=== PATIENT | female | born 1960 | race American Indian/Alaskan Native ===

== ENCOUNTER 2019-12-26 13:45 | Observation (INO) | payer OTHER, MEDICARE ==
--- NOTE | 2019-12-26 14:34 | Emergency Department Report ---
Blank Doc - Documentation Documentation: 59-year-old female that presents with dizziness with headache. Stated has some blurry vision. HTN in traiage noted. This initial assessment/diagnostic orders/clinical plan/treatment(s) is/are subject to change based on patient's health status, clinical progression and re-assessment by fellow clinical providers in the ED. Further treatment and workup at subsequent clinical providers discretion. Patient/guardians urged not to elope from the ED as their condition may be serious if not clinically assessed and managed. Initial orders include: 1- Patient sent to [facility] for further evaluation and treatment 2- CT head 3- labs
--- NOTE | 2019-12-26 15:07 | Cat Scan Report ---
CT HEAD WITHOUT CONTRAST INDICATION / CLINICAL INFORMATION: Stroke. TECHNIQUE: Axial imaging performed from the skull apex through the skull base without the use of cont rast. Sagittal and coronal reformatted images. All CT scans at this location are performed using CT dose reduction for ALARA by means of automated exposure control. COMPARISON: None available. FINDINGS: CEREBRAL PARENCHYMA: No significant abnormality. No acute territorial infarct. HEMORRHAGE: None. EXTRA-AXIAL SPACES: Normal in size and morphology for the patient's age. VENTRICULAR SYSTEM: Normal in size and morphology for the patient's age. MIDLINE SHIFT OR HERNIATION: None. CEREBELLUM / BRAINSTEM: No significant abnormality. CALVARIUM: No significant abnormality. ORBITS: Normal as visualized. PARANASAL SINUSES / MASTOID AIR CELLS: Normal as visualized. SOFT TISSUES of HEAD: No significant abnormality. ADDITIONAL FINDINGS: None. IMPRESSION: No acute intracranial abnormality. These findings were discussed with Dr. Mock in the emergency department at 1501 Eastern standard time . Signer Name: Jeremy Rollins Jr, MD Signed: 12/26/2019 3:03 PM Workstation Name: [id number]
--- NOTE | 2019-12-26 15:23 | Consultation ---
History of Present Illness Consult date: 12/26/19 History of present illness: [facility] Date of Service: 12/26/2019 14:46:18 Impression: Rule Out Acute Ischemic Stroke v Left Castelan's Palsy Comments/Sign-Out: Consider treatment for Castelan's palsy or stroke workup if appropriate Mechanism of Stroke: Not Clear Metrics: Last Known Well: 12/26/2019 08:00:00 [employer] Notification Time: 12/26/2019 14:45:39 Arrival Time: 12/26/2019 14:46:00 Stamp Time: 12/26/2019 14:46:18 Time First Login Attempt: 12/26/2019 14:51:08 Video Start Time: 12/26/2019 14:51:08 Symptoms: dizziness, facial weakness NIHSS Start Assessment Time: 12/26/2019 15:20:38 Patient is not a candidate for Alteplase/Activase. Patient was not deemed candidate for Alteplase/Activase thrombolytics because of Resolved symptoms (no residual disabling symptoms). Video End Time: 12/26/2019 15:20:35 CT head showed no acute hemorrhage or acute core infarct. Clinical Presentation is not Suggestive of Large Vessel Occlusive Disease ED Physician notified of diagnostic impression and management plan on 12/26/2019 15:20:36 Sign Out: Discussed with Emergency Department Provider History of Present Illness: Patient is a 59 year old Female. Patient was brought by private transportation with symptoms of dizziness, facial weakness 59 yo F h/o HTN, p/w earache for a few days and L sided headache. Today pt noted L facial weakness and sensation of abnormal equilibrium today, along w blurry vision for a few seconds. No previous similar symptoms. Past Medical History: Hypertension Anticoagulant use: No Antiplatelet use: No Examination: BP(159/81), Blood Glucose(123) 1A: Level of Consciousness - Alert; keenly responsive + 0 1B: Ask Month and Age - Both Questions Right + 0 1C: Blink Eyes & Squeeze Hands - Performs Both Tasks + 0 2: Test Horizontal Extraocular Movements - Normal + 0 3: Test Visual Sage - No Visual Loss + 0 4: Test Facial Palsy (Use Grimace if Obtunded) - Minor paralysis (flat nasolabial fold, smile asymmetry) + 1 5A: Test Left Arm Motor Drift - No Drift for 10 Seconds + 0 5B: Test Right Arm Motor Drift - No Drift for 10 Seconds + 0 6A: Test Left Leg Motor Drift - No Drift for 5 Seconds + 0 6B: Test Right Leg Motor Drift - No Drift for 5 Seconds + 0 7: Test Limb Ataxia (FNF/Heel-Ku) - No Ataxia + 0 8: Test Sensation - Normal; No sensory loss + 0 9: Test Language/Aphasia - Normal; No aphasia + 0 10: Test Dysarthria - Normal + 0 11: Test Extinction/Inattention - No abnormality + 0 NIHSS Score: 1 Patient/Family was informed the Neurology Consult would happen via TeleHealth consult by way of interactive audio and video telecommunications and consented to receiving care in this manner. Due to the immediate potential for life-threatening deterioration due to underlying acute neurologic illness, I spent 35 minutes providing critical care. This time includes time for face to face visit via telemedicine, review of medical records, imaging studies and discussion of findings with providers, the patient and/or family. Dr Sylvia Malone [facility] Case [id number] Medications and Allergies Allergies Allergy/AdvReac Type Severity Reaction Status Date / Time No Known Allergies Allergy Unverified 06/25/14 08:41 Physical Examination - Vital Signs Vital Signs: Vital Signs Temp Pulse Resp BP Pulse Ox 98.1 F 78 18 162/93 98 12/26/19 14:34 12/26/19 14:34 12/26/19 14:34 12/26/19 14:34 12/26/19 14:34 Results - Laboratory Findings Abnormal Lab Findings: Abnormal Labs 12/26/19 15:00 POC Glucose 123 H
[2019-12-26 15:25] LABS: Basophils % (Auto) 0.7 % (0.0-1.8); Eosinophils % (Auto) 0.8 % (0.0-4.3); Hematocrit 36.3 % (30.3-42.9); Hemoglobin 11.8 gm/dl (10.1-14.3); Lymphocytes # (Auto) 1.4 K/mm3 (1.2-5.4); Lymphocytes % (Auto) 33.7 % (13.4-35.0); Mean Corpuscular HGB Conc 33 % (30-34); Mean Corpuscular Volume 76 fl (79-97); Monocytes # (Auto) 0.5 K/mm3 (0.0-0.8); Monocytes % (Auto) 12.6 % (0.0-7.3); Platelet Count 229 K/mm3 (140-440); Red Blood Count 4.77 M/mm3 (3.65-5.03); Red Cell Distribution Width 16.5 % (13.2-15.2)
[2019-12-26] MEDS ORDERED: ASPIRIN 325 MG TAB PO ONE (15:25)
[2019-12-26] MEDS ORDERED: HYDROcodone/ACETAMINOPHEN 5-325 MG TAB PO ONE (15:25)
--- NOTE | 2019-12-26 15:28 | Emergency Department Report ---
HPI - General Chief Complaint: Dizziness Time Seen by Provider: 12/26/19 14:31 - HPI HPI: Room 7 Patient is a 59-year-old female present with a chief complaint of headache. The patient states she has had a headache and left earache for the past 5 days. The patient states today at approximate 11: 00 she noticed that her smile was asymmetric and that her face "head shifted." The patient states her vision in both eyes went "black" for several seconds so she came to the emergency department. Patient denies extremity weakness, chest pain shortness of breath or fever. ED Past Medical Hx - Past Medical History Previous Medical History?: Yes Hx Hypertension: Yes - Surgical History Past Surgical History?: No - Family History Family history: no significant - Social History Smoking Status: Former Smoker (None x10 years) Substance Use Type: None (Denies illicit drug use) ED Review of Systems ROS: Stated complaint: HEADACHE Other details as noted in HPI Constitutional: no symptoms reported Eyes: vision change ENT: ear pain Respiratory: no symptoms reported Cardiovascular: denies: chest pain Endocrine: no symptoms reported Neurological: headache, weakness (Facial weakness) Physical Exam - Physical Exam Vital Signs: Vital Signs 12/26/19 12/26/19 14:34 15:08 Temperature 98.1 F Pulse Rate 78 Respiratory 18 17 Rate Blood Pressure 162/93 O2 Sat by Pulse 98 99 Oximetry Physical Exam: GENERAL: The patient is well-developed well-nourished female lying on stretcher not appearing to be in acute distress. [] HEENT: Normocephalic. Atraumatic. Extraocular motions are intact. Patient has moist mucous membranes. Auditory canals appear slightly swollen bilaterally. The visualized portion of TM very limited but appears clear NECK: Supple. Trachea midline CHEST/LUNGS: Clear to auscultation. There is no respiratory distress noted. HEART/CARDIOVASCULAR: Regular. There is no tachycardia. There is no gallop rub or murmur. ABDOMEN: Abdomen is soft, nontender. Patient has normal bowel sounds. There is no abdominal distention. SKIN: There is no rash. There is no edema. There is no diaphoresis. NEURO: The patient is awake, alert, and oriented. The patient is cooperative. There is a left facial droop with forehead sparing otherwise cranial nerves II through XII grossly intact. No weakness in the extremities appreciated. The patient has normal speech MUSCULOSKELETAL: There is no evidence of acute injury. ED Course Vital Signs 12/26/19 12/26/19 14:34 15:08 Temperature 98.1 F Pulse Rate 78 Respiratory 18 17 Rate Blood Pressure 162/93 O2 Sat by Pulse 98 99 Oximetry ED Medical Decision Making - Lab Data Result diagrams: 12/26/19 14:59 12/26/19 14:59 Laboratory Tests 12/26/19 12/26/19 12/26/19 14:59 14:59 14:59 WBC 4.2 L RBC 4.77 Hgb 11.8 Hct 36.3 MCV 76 L MCH 25 L MCHC 33 RDW 16.5 H Plt Count 229 Lymph % (Auto) 33.7 [place] % (Auto) 12.6 H Eos % (Auto) 0.8 Baso % (Auto) 0.7 Lymph # 1.4 [place] # 0.5 Eos # 0.0 Baso # 0.0 Seg Neutrophils % 52.2 Seg Neutrophils # 2.2 PT 12.2 INR 0.90 APTT 25.7 Thrombin Time 16.1 Sodium 142 Potassium 3.5 L Chloride 105.2 Carbon Dioxide 25 Anion Gap 15 BUN 11 Creatinine 0.8 Estimated GFR > 60 BUN/Creatinine Ratio 14 Glucose 123 H POC Glucose Calcium 9.6 Total Bilirubin 0.30 AST 20 ALT 13 Alkaline Phosphatase 89 Total Creatine Kinase 229 H CK-MB (CK-2) 1.9 CK-MB (CK-2) Rel Index 0.8 Troponin T < 0.010 Total Protein 7.4 Albumin 4.4 Albumin/Globulin Ratio 1.5 Plasma/Serum Alcohol 12/26/19 12/26/19 14:59 15:00 WBC RBC Hgb Hct MCV MCH MCHC RDW Plt Count Lymph % (Auto) [place] % (Auto) Eos % (Auto) Baso % (Auto) Lymph # [place] # Eos # Baso # Seg Neutrophils % Seg Neutrophils # PT INR APTT Thrombin Time Sodium Potassium Chloride Carbon Dioxide Anion Gap BUN Creatinine Estimated GFR BUN/Creatinine Ratio Glucose POC Glucose 123 H Calcium Total Bilirubin AST ALT Alkaline Phosphatase Total Creatine Kinase CK-MB (CK-2) CK-MB (CK-2) Rel Index Troponin T Total Protein Albumin Albumin/Globulin Ratio Plasma/Serum Alcohol < 0.01 - EKG Data -: EKG Interpreted by Sc EKG shows normal: sinus rhythm Rate: bradycardia (59 bpm) - EKG Data When compared to previous EKG there are: previous EKG unavailable Interpretation: nonspecific ST-T wave cb - Radiology Data Radiology results: report reviewed (CT head), image reviewed (CT head) [facility] [address] [place] [address] Cat Scan Report Signed Patient: JOANIE CASTELAN MR#: [id number] : 1960 Acct:[id number] Age/Sex: 59 / F ADM Date: 12/26/19 Loc: ED Attending Dr: Ordering Physician: MORALES CAPELLAN NP Date of Service: 12/26/19 Procedure(s): CT head/brain wo con Accession Number(s): [id number] cc: MORALES CAPELLAN NP CT HEAD WITHOUT CONTRAST INDICATION / CLINICAL INFORMATION: Stroke. TECHNIQUE: Axial imaging performed from the skull apex through the skull base without the use of contrast. Sagittal and coronal reformatted images. All CT scans at this location are performed using CT dose reduction for ALARA by means of automated exposure control. COMPARISON: None available. FINDINGS: CEREBRAL PARENCHYMA: No significant abnormality. No acute territorial infarct. HEMORRHAGE: None. EXTRA-AXIAL SPACES: Normal in size and morphology for the patient's age. VENTRICULAR SYSTEM: Normal in size and morphology for the patient's age. MIDLINE SHIFT OR HERNIATION: None. CEREBELLUM / BRAINSTEM: No significant abnormality. CALVARIUM: No significant abnormality. ORBITS: Normal as visualized. PARANASAL SINUSES / MASTOID AIR CELLS: Normal as visualized. SOFT TISSUES of HEAD: No significant abnormality. ADDITIONAL FINDINGS: None. IMPRESSION: No acute intracranial abnormality. These findings were discussed with Dr. Mock in the emergency department at 1501 Eastern standard time. Signer Name: Jeremy Rollins Jr, MD Signed: 12/26/2019 3:03 PM Workstation Name: [id number] Transcribed By: TTR Dictated By: JEREMY ROLLINS JR, MD Electronically Authenticated By: JEREMY ROLLINS JR, MD Signed Date/Time: 12/26/19 1503 DD/ 1459 TD/TT: - Differential Diagnosis CVA, Castelan's Critical care attestation.: If time is entered above; I have spent that time in minutes in the direct care of this critically ill patient, excluding procedure time. ED Disposition Clinical Impression: CVA (cerebral vascular accident) Disposition: DC-09 OP ADMIT IP TO THIS HOSP Is pt being admited?: Yes Does the pt Need Aspirin: Yes Condition: Fair Time of Disposition: 17:29 (Hospitalist paged (Dr. Pat))
[2019-12-26 15:31] LABS: INR 0.9 (0.87-1.13)
[2019-12-26 15:32] LABS: Partial Thromboplastin Time 25.7 Sec. (24.2-36.6); Thrombin Time 16.1 Sec. (15.1-19.6)
[2019-12-26 15:50] LABS: Alanine Aminotransferase 13 units/L (7-56); Albumin 4.4 g/dL (3.9-5); BUN/Creatinine Ratio 14; Blood Urea Nitrogen 11 mg/dL (7-17); Calcium 9.6 mg/dL (8.4-10.2); Creatine Kinase MB 1.9 ng/mL (0.0-4.0); Hemolysis Index 0
[2019-12-26] MEDS ORDERED: PROMETHAZINE 25 MG RECT SUPP PR PRN (19:04)
[2019-12-26] MEDS ORDERED: ONDANSETRON 4 MG/2 ML INJ IV PRN (19:04)
[2019-12-26] MEDS ORDERED: METOCLOPRAMIDE 10 MG TAB PO PRN (19:04)
--- NOTE | 2019-12-26 19:04 | History and Physical Report ---
History of Present Illness Chief complaint: My face was twisted History of present illness: 59 YO Female with HTN, Obesity presents to ED for evaluation. Patient states that she has experienced a headache and left earache over the past 5 days. Patient states that approximately 100 hours a day she noticed that her smile was crooked, and that her face "head shifted". Patient also reports that her vision in both eyes "went black" for several seconds. Patient transported to [facility] via private vehicle for further care and evaluation of the aforementioned symptoms. Patient seen and evaluated in the emergency department. A code stroke was called. Tele-neurology was consulted in the emergency department prior to my evaluation. Patient found to have a neurologic deficit as well as symptoms consistent with acute CVA. Patient initiated on stroke protocol and placed in observation status and admitted to medical floor. Patient denies fever, chills, chest pain, palpitations, productive cough, skin rash, recent ill contacts, or known exposure to COVID-19. No medication listed at time of admission for reconciliation. No prior admission for review. Advanced care planning conducted in the emergency department. Past History Past Medical History: hypertension, other (See HPI) Past Surgical History: No surgical history, Other (Reviewed) Social history: single. denies: smoking, alcohol abuse, prescription drug abuse Family history: hypertension Medications and Allergies Allergies Allergy/AdvReac Type Severity Reaction Status Date / Time No Known Allergies Allergy Unverified 06/25/14 08:41 Review of Systems Constitutional: no weight loss, no weight gain, no fever, no chills Ears, nose, mouth and throat: no ear pain, no ear discharge, no tinnitis Breasts: no change in shape, no swelling, no mass Cardiovascular: no chest pain, no orthopnea, no rapid/irregular heart beat, no edema Respiratory: no cough, no cough with sputum, no hemoptysis, no shortness of breath Gastrointestinal: no abdominal pain, no nausea, no vomiting, no constipation, no change in bowel habits Genitourinary Female: no pelvic pain, no flank pain, no urinary frequency, no urgency Rectal: no pain, no bleeding Musculoskeletal: no neck stiffness, no shooting arm pain, no low back pain, no leg numbness/tingling Integumentary: no rash, no pruritis, no redness, no sores, no wounds Neurological: weakness, lack of coordination, headaches, change in speech, loss of vision, no seizures, no syncope Psychiatric: no anxiety, no memory loss, no sleep disturbances, no change in appetite, no suicidal ideation Endocrine: no cold intolerance, no heat intolerance, no excessive thirst, no polydipsia, no polyuria, no nocturia Hematologic/Lymphatic: no easy bruising, no easy bleeding, no lymphadenopathy Allergic/Immunologic: no allergic rhinitis, no anaphylaxis Exam - Constitutional Vitals: Temp Pulse Resp BP Pulse Ox 98.1 F 83 13 118/68 97 12/26/19 14:34 12/26/19 17:48 12/26/19 17:48 12/26/19 17:48 12/26/19 17:48 General appearance: Present: mild distress - EENT Eyes: Present: PERRL ENT: hearing intact, clear oral mucosa - Neck Neck: Present: supple, normal ROM - Respiratory Respiratory effort: normal Respiratory: bilateral: CTA - Cardiovascular Heart Sounds: Present: S1 & S2. Absent: rub, click - Extremities Extremities: pulses symmetrical, No edema Peripheral Pulses: within normal limits - Abdominal General gastrointestinal: Present: soft, non-tender, non-distended, normal bowel sounds Female genitourinary: Present: normal - Integumentary Integumentary: Present: clear, warm, dry - Musculoskeletal Musculoskeletal: gait normal, strength equal bilaterally - Psychiatric Psychiatric: appropriate mood/affect, intact judgment & insight - Neurologic Neurologic: CNII-XII intact, moves all extremities, no gait normal HEART Score - HEART Score Troponin: Troponin T < 0.010 ng/mL (0.00-0.029) 12/26/19 14:59 Results - Labs CBC & Chem 7: 12/26/19 14:59 12/26/19 14:59 Labs: Abnormal lab results 12/26/19 12/26/19 12/26/19 Range/Units 14:59 14:59 15:00 WBC 4.2 L (4.5-11.0) K/mm3 MCV 76 L (79-97) fl MCH 25 L (28-32) pg RDW 16.5 H (13.2-15.2) % [place] % (Auto) 12.6 H (0.0-7.3) % Potassium 3.5 L (3.6-5.0) mmol/L Glucose 123 H (65-100) mg/dL POC Glucose 123 H (70-105) Total Creatine Kinase 229 H (30-135) units/L Assessment and Plan - Patient Problems (1) CVA (cerebral vascular accident) Current Visit: Yes Status: Acute Plan to address problem: CVA protocol: Admit to medical floor. CT head, carotid Doppler, echocardiogram, neuro check, lipid panel, statin therapy, antiplatelet therapy, physical therapy consulted, Occupational Therapy consulted, speech therapy consulted, (2) Hypertension Current Visit: Yes Status: Acute Qualifiers: Hypertension type: essential hypertension Qualified Code(s): I10 - Essential (primary) hypertension Plan to address problem: Monitor blood pressure every shift, continue medical management. (3) Obesity hypoventilation syndrome Current Visit: Yes Status: Acute Plan to address problem: Supplemental oxygen, pulse oximetry, noninvasive positive pressure ventilation as clinically indicated. Balanced diet, increase physical activity at discharge. (4) DVT prophylaxis Current Visit: Yes Status: Acute Plan to address problem: SCD to bilateral lower extremities while in bed, patient is ambulatory. (5) Advance care planning Current Visit: Yes Status: Acute Plan to address problem: Disease education conducted, patient is full code, prognosis discussed, patient knowledges understanding and agreement with care plan, +30 minutes.
[2019-12-26 20:21] LABS: Chol/HDL Ratio 4.31 %
--- NOTE | 2019-12-27 10:21 | Consultation ---
History of Present Illness Consult date: 12/27/19 History of present illness: 59 YO Female with HTN, Obesity presents to ED for evaluation. Patient states that she has experienced a headache and left earache over the past 5 days. Patient states that approximately 100 hours a day she noticed that her smile was crooked, and that her face "head shifted". Patient also reports that her vision in both eyes "went black" for several seconds. Patient transported to [facility] via private vehicle for further care and evaluation of the aforementioned symptoms. Patient seen and evaluated in the emergency department. A code stroke was called. Tele-neurology was consulted in the emergency department prior to my evaluation. Patient found to have a neurologic deficit as well as symptoms consistent with acute CVA. Patient initiated on stroke protocol and placed in observation status and admitted to medical floor. Patient denies fever, chills, chest pain, palpitations, productive cough, skin rash, recent ill contacts, or known exposure to COVID-19. No medication listed at time of admission for reconciliation. No prior admission for review. Advanced care planning conducted in the emergency department. Past History Past Medical History: hypertension, other (See HPI) Past Surgical History: No surgical history, Other (Reviewed) Social history: single. denies: smoking, alcohol abuse, prescription drug abuse Family history: hypertension Medications and Allergies Allergies Allergy/AdvReac Type Severity Reaction Status Date / Time No Known Allergies Allergy Unverified 06/25/14 08:41 Review of Systems Constitutional: no weight loss, no weight gain, no fever, no chills Ears, nose, mouth and throat: no ear pain, no ear discharge, no tinnitis Breasts: no change in shape, no swelling, no mass Cardiovascular: no chest pain, no orthopnea, no rapid/irregular heart beat, no edema Respiratory: no cough, no cough with sputum, no hemoptysis, no shortness of breath Gastrointestinal: no abdominal pain, no nausea, no vomiting, no constipation, no change in bowel habits Genitourinary Female: no pelvic pain, no flank pain, no urinary frequency, no urgency Rectal: no pain, no bleeding Musculoskeletal: no neck stiffness, no shooting arm pain, no low back pain, no leg numbness/tingling Integumentary: no rash, no pruritis, no redness, no sores, no wounds Neurological: weakness, lack of coordination, headaches, change in speech, loss of vision, no seizures, no syncope Psychiatric: no anxiety, no memory loss, no sleep disturbances, no change in appetite, no suicidal ideation Endocrine: no cold intolerance, no heat intolerance, no excessive thirst, no polydipsia, no polyuria, no nocturia Hematologic/Lymphatic: no easy bruising, no easy bleeding, no lymphadenopathy Allergic/Immunologic: no allergic rhinitis, no anaphylaxis Past History Past Medical History: hypertension, other (See HPI) Past Surgical History: No surgical history, Other (Reviewed) Social history: single. denies: smoking, alcohol abuse, prescription drug abuse Family history: hypertension Medications and Allergies Allergies Allergy/AdvReac Type Severity Reaction Status Date / Time No Known Allergies Allergy Unverified 06/25/14 08:41 Home Medications Medication Instructions Recorded Confirmed Last Taken Type amLODIPine 5 mg PO DAILY 12/26/19 12/26/19 Unknown History Lispro Insulin 6 units SQ BID 12/27/19 12/27/19 Unknown History Amoxicillin/K Clav Tab [Augmentin 1 each PO Q12HR #10 tablet 12/28/19 Unknown Rx 875MG TAB] Aspirin [Aspirin BABY CHEW TAB] 81 mg PO QDAY #30 tab.chew 12/28/19 Unknown Rx AtorvaSTATin [Lipitor] 40 mg PO QHS #30 tablet 12/28/19 Unknown Rx Ondansetron [Zofran Odt] 4 mg PO Q6H #30 tab.rapdis 12/28/19 Unknown Rx predniSONE [Deltasone] 40 mg PO QDAY #10 tablet 12/28/19 Unknown Rx Active Meds: Active Medications Acetaminophen (Tylenol) 650 mg PO Q4H PRN PRN Reason: Pain, Mild (1-3) Atorvastatin Calcium (Lipitor) 40 mg PO QHS SOPHIE Last Admin: 12/26/19 22:35 Dose: 40 mg Documented by: Bisacodyl (Dulcolax) 10 mg WV QDAY PRN PRN Reason: Constipation Magnesium Hydroxide (Milk Of Magnesia) 30 ml PO Q4H PRN PRN Reason: Constipation Metoclopramide HCl (Reglan) 10 mg PO Q6H PRN PRN Reason: Nausea And Vomiting Ondansetron HCl (Zofran) 4 mg IV Q8H PRN PRN Reason: Nausea And Vomiting Promethazine HCl (Phenergan) 25 mg WV Q6H PRN PRN Reason: Nausea And Vomiting Sodium Chloride (Sodium Chloride Flush Syringe 10 Ml) 10 ml IV PRN PRN PRN Reason: LINE FLUSH Physical Examination - Vital Signs Vital Signs: Vital Signs Temp Pulse Resp BP Pulse Ox 98.1 F 78 18 162/93 98 12/26/19 14:34 12/26/19 14:34 12/26/19 14:34 12/26/19 14:34 12/26/19 14:34 - Constitutional General appearance: comfortable - EENT EENT: Present: PERRL, vision intact - Respiratory Respiratory: Present: chest non-tender - Cardiovascular Cardiovascular: Present: regular rate - Gastrointestinal Gastrointestinal: Present: normoactive bowel sounds - Integumentary Integumentary: Present: normal - Neurologic Cranial nerve examination: anosmic, other (left facial droop upper and lower , with slight difficulty close left eye , ) Speech examination: intact Sensorimotor examination: intact Detailed motor examination: grossly full strength in Results - Laboratory Findings CBC and BMP: 12/26/19 14:59 12/26/19 14:59 Abnormal Lab Findings: Abnormal Labs 12/26/19 12/26/19 12/26/19 14:59 14:59 15:00 WBC 4.2 L MCV 76 L MCH 25 L RDW 16.5 H [place] % (Auto) 12.6 H Potassium 3.5 L Glucose 123 H POC Glucose 123 H Total Creatine Kinase 229 H Cholesterol LDL Cholesterol Direct 12/26/19 19:16 WBC MCV MCH RDW [place] % (Auto) Potassium Glucose POC Glucose Total Creatine Kinase Cholesterol 203 H LDL Cholesterol Direct 139 H Assessment and Plan Assessment and Plan - Patient Problems (1) left bells palsy -Ct brain is normal - carotid Doppler unremarkabl - echocardiogram, EF# 55-60% - lipid panel LDL#139 on statin [id number] mg - antiplatelet therapy - physical therapy consulted, Occupational Therapy -started on steroid Follow up with ENT if no better in a month (2) Hypertension -Monitor blood pressure (3) Obesity hypoventilation syndrome - Consider sleep study as out pt -try to loss weight (4) DVT prophylaxis -SCD to bilateral lower extremities while in bed, patient is ambulatory.
--- NOTE | 2019-12-27 12:17 | Vascular Lab Report ---
BILATERAL CAROTID DOPPLER ULTRASOUND INDICATION : stroke TECHNIQUE: Grayscale and color Doppler imaging performed through the neck. COMPARISON: None FINDINGS: Right: There is no significant atherosclerotic disease. Peak systolic velocity in the CCA is 80 cm/ s with end-diastolic velocity of 26 cm/s. Peak systolic velocity in the proximal ICA is 79 cm/s with end-diastolic velocity of 99 cm/s. ICA to CCA ratio is less than 2. There is antegrade flow in the E CA and the vertebral artery. Left: There is no significant atherosclerotic disease. Peak systolic velocity in the CCA is 94 cm/s w ith end-diastolic velocity of 27 cm/s. Peak systolic velocity in the proximal ICA is 95 cm/s with end -diastolic velocity of 25 cm/s. ICA to CCA ratio is less than 2. There is antegrade flow in the ECA and the vertebral artery. IMPRESSION: No hemodynamically significant stenosis by NASCET criteria. Doppler velocities indicate l ess than 50% luminal narrowing bilaterally. Signer Name: Jeremy Rollins Jr, MD Signed: 12/27/2019 12:13 PM Workstation Name: [id number]
[2019-12-27] MEDS: ACETAMINOPHEN 325 MG TAB PO PRN ×2 (12:43→18:36)
--- NOTE | 2019-12-27 16:53 | Progress Note ---
Assessment and Plan Assessment and plan: 59 YO Female with HTN, Obesity presents to ED for evaluation. Patient states that she has experienced a headache and left earache over the past 5 days. Patient states that approximately 100 hours a day she noticed that her smile was crooked, and that her face "head shifted". Patient also reports that her vision in both eyes "went black" for several seconds. Patient transported to [facility] via private vehicle for further care and evaluation of the aforementioned symptoms. Patient seen and evaluated in the emergency department. A code stroke was called. Tele-neurology was consulted in the emergency department prior to my evaluation. Patient found to have a neurologic deficit as well as symptoms consistent with acute CVA. Patient initiated on stroke protocol and placed in observation status and admitted to medical floor. Patient denies fever, chills, chest pain, palpitations, productive cough, skin rash, recent ill contacts, or known exposure to COVID-19. No medication listed at time of admission for reconciliation. No prior admission for review. Advanced care planning conducted in the emergency department. 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 Patient with chronic headaches will continue Tylenol at this time. Monitor blood pressure. Weight loss counseling provided to the patient. (2) Hypertension Current Visit: Yes Status: Acute Qualifiers: Hypertension type: essential hypertension Qualified Code(s): I10 - Essential (primary) hypertension Plan to address problem: Monitor blood pressure every shift, continue medical management. (3) Obesity hypoventilation syndrome Current Visit: Yes Status: Acute Plan to address problem: Supplemental oxygen, pulse oximetry, noninvasive positive pressure ventilation as clinically indicated. Balanced diet, increase physical activity at discharge. (4) DVT prophylaxis Current Visit: Yes Status: Acute Plan to address problem: SCD to bilateral lower extremities while in bed, patient is ambulatory. (5) Advance care planning Current Visit: Yes Status: Acute Plan to address problem: Disease education conducted, patient is full code, prognosis discussed, patient knowledges understanding and agreement with care plan, +30 minutes. History Interval history: Examined reports headache no other complaints. Left facial droop still in place. Hospitalist Physical - Physical exam Narrative exam: VITAL SIGNS: Reviewed. GENERAL: The patient appears normally developed, Vital signs as documented. HEAD: No signs of head trauma. EYES: Pupils are equal. Extraocular motions intact. EARS: Hearing grossly intact. MOUTH: Oropharynx is normal. NECK: No adenopathy, no JVD. CHEST: Chest with clear breath sounds bilaterally. No wheezes, rales, or rhonchi. CARDIAC: Regular rate and rhythm. S1 and S2, without murmurs, gallops, or rubs. VASCULAR: No Edema. Peripheral pulses normal and equal in all extremities. ABDOMEN: Soft, non tender and non distended. No rebound or guarding, and no masses palpated. Bowel Sounds normal. MUSCULOSKELETAL: Good range of motion of all major joints. Extremities without clubbing, cyanosis or edema. NEUROLOGIC EXAM: Alert and oriented x 3 except for noted left facial droop no other no focal sensory or strength deficits. Speech normal. Follows commands. PSYCHIATRIC: Mood normal. SKIN: detail exam as documented in skin assessment - Constitutional Vitals: Temp Pulse Resp BP Pulse Ox 98.4 F 91 H 18 131/86 99 12/27/19 03:51 12/27/19 03:51 12/27/19 03:51 12/27/19 03:51 12/27/19 03:51 General appearance: Present: mild distress HEART Score - HEART Score Troponin: Troponin T < 0.010 ng/mL (0.00-0.029) 12/26/19 14:59 Results - Labs CBC & Chem 7: 12/26/19 14:59 12/26/19 14:59 Labs: Laboratory Last Values WBC 4.2 K/mm3 (4.5-11.0) L 12/26/19 14:59 RBC 4.77 M/mm3 (3.65-5.03) 12/26/19 14:59 Hgb 11.8 gm/dl (10.1-14.3) 12/26/19 14:59 Hct 36.3 % (30.3-42.9) 12/26/19 14:59 MCV 76 fl (79-97) L 12/26/19 14:59 MCH 25 pg (28-32) L 12/26/19 14:59 MCHC 33 % (30-34) 12/26/19 14:59 RDW 16.5 % (13.2-15.2) H 12/26/19 14:59 Plt Count 229 K/mm3 (140-440) 12/26/19 14:59 Lymph % (Auto) 33.7 % (13.4-35.0) 12/26/19 14:59 [place] % (Auto) 12.6 % (0.0-7.3) H 12/26/19 14:59 Eos % (Auto) 0.8 % (0.0-4.3) 12/26/19 14:59 Baso % (Auto) 0.7 % (0.0-1.8) 12/26/19 14:59 Lymph # 1.4 K/mm3 (1.2-5.4) 12/26/19 14:59 [place] # 0.5 K/mm3 (0.0-0.8) 12/26/19 14:59 Eos # 0.0 K/mm3 (0.0-0.4) 12/26/19 14:59 Baso # 0.0 K/mm3 (0.0-0.1) 12/26/19 14:59 Seg Neutrophils % 52.2 % (40.0-70.0) 12/26/19 14:59 Seg Neutrophils # 2.2 K/mm3 (1.8-7.7) 12/26/19 14:59 PT 12.2 Sec. (12.2-14.9) 12/26/19 14:59 INR 0.90 (0.87-1.13) 12/26/19 14:59 APTT 25.7 Sec. (24.2-36.6) 12/26/19 14:59 Thrombin Time 16.1 Sec. (15.1-19.6) 12/26/19 14:59 Sodium 142 mmol/L (137-145) 12/26/19 14:59 Potassium 3.5 mmol/L (3.6-5.0) L 12/26/19 14:59 Chloride 105.2 mmol/L (98-107) 12/26/19 14:59 Carbon Dioxide 25 mmol/L (22-30) 12/26/19 14:59 Anion Gap 15 mmol/L 12/26/19 14:59 BUN 11 mg/dL (7-17) 12/26/19 14:59 Creatinine 0.8 mg/dL (0.6-1.2) 12/26/19 14:59 Estimated GFR > 60 ml/min 12/26/19 14:59 BUN/Creatinine Ratio 14 % 12/26/19 14:59 Glucose 123 mg/dL (65-100) H 12/26/19 14:59 POC Glucose 89 (70-105) 12/27/19 08:39 Calcium 9.6 mg/dL (8.4-10.2) 12/26/19 14:59 Total Bilirubin 0.30 mg/dL (0.1-1.2) 12/26/19 14:59 AST 20 units/L (5-40) 12/26/19 14:59 ALT 13 units/L (7-56) 12/26/19 14:59 Alkaline Phosphatase 89 units/L (35-129) 12/26/19 14:59 Total Creatine Kinase 229 units/L (30-135) H 12/26/19 14:59 CK-MB (CK-2) 1.9 ng/mL (0.0-4.0) 12/26/19 14:59 CK-MB (CK-2) Rel Index 0.8 (0-4) 12/26/19 14:59 Troponin T < 0.010 ng/mL (0.00-0.029) 12/26/19 14:59 Total Protein 7.4 g/dL (6.3-8.2) 12/26/19 14:59 Albumin 4.4 g/dL (3.9-5) 12/26/19 14:59 Albumin/Globulin Ratio 1.5 % 12/26/19 14:59 Triglycerides 137 mg/dL (2-149) 12/26/19 19:16 Cholesterol 203 mg/dL (50-199) H 12/26/19 19:16 LDL Cholesterol Direct 139 mg/dL (50-130) H 12/26/19 19:16 HDL Cholesterol 47 mg/dL (40-59) 12/26/19 19:16 Cholesterol/HDL Ratio 4.31 % 12/26/19 19:16 Plasma/Serum Alcohol < 0.01 % (0-0.07) 12/26/19 14:59 - Diagnostic Impressions Diagnostic Impressions: Echocardiogram 12/26/19 19:05 Transthoracic Echocardiogram Indication: Stroke BP: 131/86 HR: 68 Conclusions *The left ventricular chamber size is normal. *Global left ventricular wall motion and contractility are within normal limits. *Global left ventricular systolic function is normal. *The estimated ejection fraction is 55-60%. *Abnormal left ventricular diastolic filling is observed, consistent with impaired relaxation. *A patent foramen ovale is demonstrated by agitated saline contrast. Very small shunt noted on saline injection. *The right ventricular systolic pressure is calculated at 28 mmHg. Findings Left Ventricle: The left ventricular chamber size is normal. Global left ventricular wall motion and contractility are within normal limits. Global left ventricular systolic function is normal. The estimated ejection fraction is 55-60%. Abnormal left ventricular diastolic filling is observed, consistent with impaired relaxation. Right Ventricle: The right ventricular cavity size is normal. Right Atrium: The right atrial cavity size is normal. A patent foramen ovale is demonstrated by agitated saline contrast. Very small shunt noted on saline injection. Aortic Valve: The aortic valve structure is normal. There is no evidence of aortic regurgitation. Mitral Valve: The mitral valve leaflets are mildly thickened. There is trace of mitral regurgitation. Tricuspid Valve: The tricuspid valve leaflets are normal. There is mild tricuspid regurgitation. The right ventricular systolic pressure is calculated at 28 mmHg. Pulmonic Valve: The pulmonic valve appears normal. There is trace pulmonic regurgitation. Pericardium: There is no pericardial effusion. Aorta: The aorta appears normal. Contrast: Intravenous agitated saline contrast was used to assess intracardiac shunting. Measurements Chambers 2D Name Value Normal Range IVSd (2D) 0.99 cm (0.6 - 1.1) LVPWd (2D) 0.9 cm (0.6 - 1.1) LVIDd (2D) 4.38 cm (3.7 - 5.6) LVIDs (2D) 2.79 cm (2 - 3.8) LV FS (2D) 36.23 % - EF Teichholz (2D) 66.14 % - Ao root diameter (2D) 2.74 cm (2 - 3.7) Volumes/Mass Name Value Normal Range LA ESV SP 4CH (A/L) 29.52 ml - LA ESV SP 2CH (A/L) 44.45 ml - LA ESV BP (A/L) 36.82 ml - LA ESV BP (A/L) index 18.23 ml/m2 - LA ESV SP 4CH (MOD) 27.44 ml - LA ESV SP 2CH (MOD) 43.69 ml - LA ESV BP (MOD) 34.97 ml - LA ESV BP (MOD) index 17.31 ml/m2 - Diastolic/Systolic Function Name Value Normal Range MV E-wave Vmax 0.73 m/sec - MV deceleration time 207.62 msec - MV A-wave Vmax 0.82 m/sec - MV E:A ratio 0.89 ratio - Aortic Valve Name Value Normal Range AV Vmax 1.38 m/sec - AV VTI 30.56 cm - AV peak gradient 7.58 mmHg - AV mean gradient 4.3 mmHg - LVOT diameter 2.02 cm - LVOT Vmax 1.08 m/sec - LVOT VTI 26.08 cm - LVOT peak gradient 4.68 mmHg - LVOT mean gradient 2.73 mmHg - SV LVOT 83.51 ml - CAMILO (continuity Vmax) 2.52 cm2 - CAMILO (continuity VTI) 2.73 cm2 - Tricuspid Valve Name Value Normal Range TR Vmax 2.53 m/sec - TR peak gradient 25 mmHg - RAP 3 mmHg - RVSP 28 mmHg - Pulmonic Valve/Qp:Qs Name Value Normal Range PV Vmax 0.86 m/sec - PV peak gradient 2.96 mmHg - NM end-diastolic Vmax 0.92 m/sec - PV acceleration time 171.27 msec - Knapp/IV: Voiding Method Toilet IV Catheter Type [Right INT / Saline Lock Antecubital] Active Medications - Current Medications Current Medications: Generic Name Dose Route Start Last Admin Trade Name Freq PRN Reason Stop Dose Admin Acetaminophen 650 mg 12/26/19 19:04 12/27/19 12:43 Tylenol PO 650 mg Q4H PRN Administration Pain, Mild (1-3) Atorvastatin Calcium 40 mg 12/26/19 22:00 12/26/19 22:35 Lipitor PO 40 mg QHS SOPHIE Administration Bisacodyl 10 mg 12/26/19 19:04 Dulcolax NM QDAY PRN Constipation Magnesium Hydroxide 30 ml 12/26/19 19:04 Milk Of Magnesia PO Q4H PRN Constipation Metoclopramide HCl 10 mg 12/26/19 19:04 Reglan PO Q6H PRN Nausea And Vomiting Ondansetron HCl 4 mg 12/26/19 19:04 Zofran IV Q8H PRN Nausea And Vomiting Promethazine HCl 25 mg 12/26/19 19:04 Phenergan NM Q6H PRN Nausea And Vomiting Sodium Chloride 10 ml 12/26/19 19:04 Sodium Chloride Flush Syringe 10 Ml IV PRN PRN LINE FLUSH
[2019-12-27] MEDS: MAGNESIUM HYDROXIDE (MOM) ORAL LIQD UDC PO PRN (21:53)
[2019-12-28] MEDS: amLODIPine 5 MG TAB PO SCH (09:49)
[2019-12-28] MEDS: predniSONE 20 MG TAB PO SCH (09:50)
[2019-12-28] MEDS: AMOXICILLIN/K CLAV 875/125MG TAB PO SCH ×2 (09:50→21:24)
[2019-12-28] MEDS: INSULIN LISPRO 100 UNIT/ML VIAL 3 mL SUB-Q SCH ×2 (09:51→17:26)
--- NOTE | 2019-12-28 11:48 | Discharge Summary ---
Providers - Providers Date of Admission: 12/26/19 19:04 Attending physician: SHEBA DAVIS MD 12/26/19 19:04 Occupational Therapy Evaluate and Treat [CONS] Routine Comment: Reason For Exam: Neuro deficits Physical Therapy Evaluation and Treat [CONS] Routine Comment: Reason For Exam: Neuro deficits 12/26/19 19:05 Speech Therapy Evaluation and Treat [CONS] Routine Reason For Exam: swallow eval 12/27/19 09:43 Consult to Physician [CONS] Routine Comment: Consulting Provider: CAROLINE MCINTOSH Physician Instructions: Reason For Exam: cva Primary care physician: DAI MEYER Hospitalization Reason for admission: facial drop Condition: Stable Hospital course: 59 YO Female with HTN, Obesity presents to ED for evaluation. Patient states that she has experienced a headache and left earache over the past 5 days. Patient states that approximately 100 hours a day she noticed that her smile was crooked, and that her face "head shifted". Patient also reports that her vision in both eyes "went black" for several seconds. Patient transported to [facility] via private vehicle for further care and evaluation of the aforementioned symptoms. Patient seen and evaluated in the emergency department. A code stroke was called. Tele-neurology was consulted in the emergency department prior to my evaluation. Patient found to have a neurologic deficit as well as symptoms consistent with acute CVA. Patient initiated on stroke protocol and placed in observation status and admitted to medical floor. Patient denies fever, chills, chest pain, palpitations, productive cough, skin rash, recent ill contacts, or known exposure to COVID-19. No medication listed at time of admission for reconciliation. No prior admission for review. Advanced care planning conducted in the emergency department. 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 Patient with chronic headaches will continue Tylenol at this time. Monitor blood pressure. Weight loss counseling provided to the patient. (2) Hypertension Current Visit: Yes Status: Acute Qualifiers: Hypertension type: essential hypertension Qualified Code(s): I10 - Essential (primary) hypertension Plan to address problem: Monitor blood pressure every shift, continue medical management. (3) Obesity hypoventilation syndrome Current Visit: Yes Status: Acute Plan to address problem: Supplemental oxygen, pulse oximetry, noninvasive positive pressure ventilation as clinically indicated. Balanced diet, increase physical activity at discharge. (4) DVT prophylaxis Current Visit: Yes Status: Acute Plan to address problem: SCD to bilateral lower extremities while in bed, patient is ambulatory. (5) Advance care planning Current Visit: Yes Status: Acute Plan to address problem: Disease education conducted, patient is full code, prognosis discussed, patient knowledges understanding and agreement with care plan, +30 minutes. Disposition: DC-01 TO HOME OR SELFCARE Time spent for discharge: 35 mins Core Measure Documentation - Palliative Care Palliative Care/ Comfort Measures: Not Applicable - Core Measures Any of the following diagnoses?: none Exam - Physical Exam Narrative exam: VITAL SIGNS: Reviewed. GENERAL: The patient appears normally developed, Vital signs as documented. HEAD: No signs of head trauma. EYES: Pupils are equal. Extraocular motions intact. EARS: Hearing grossly intact. MOUTH: Oropharynx is normal. NECK: No adenopathy, no JVD. CHEST: Chest with clear breath sounds bilaterally. No wheezes, rales, or rhonchi. CARDIAC: Regular rate and rhythm. S1 and S2, without murmurs, gallops, or rubs. VASCULAR: No Edema. Peripheral pulses normal and equal in all extremities. ABDOMEN: Soft, non tender and non distended. No rebound or guarding, and no masses palpated. Bowel Sounds normal. MUSCULOSKELETAL: Good range of motion of all major joints. Extremities without clubbing, cyanosis or edema. NEUROLOGIC EXAM: Alert and oriented x 3 except for noted left facial droop no other no focal sensory or strength deficits. Speech normal. Follows commands. PSYCHIATRIC: Mood normal. SKIN: detail exam as documented in skin assessment - Constitutional Vitals: Temp Pulse Resp BP Pulse Ox 98.6 F 91 H 20 148/93 99 12/28/19 07:42 12/28/19 09:49 12/28/19 07:42 12/28/19 09:49 12/28/19 07:42 Plan Activity: advance as tolerated, fall precautions Diet: low fat Special Instructions: record daily weights, record daily BP diary Additional Instructions: FOLLOW WITH NEUROLOGIST PER PCP RECOMMENDATION Follow up with: DAI MEYER MD [Primary Care Provider] - 3-5 Days Prescriptions: AtorvaSTATin [Lipitor] 40 mg PO QHS #30 tablet Aspirin [Aspirin BABY CHEW TAB] 81 mg PO QDAY #30 tab.[email or web address] Amoxicillin/K Clav Tab [Augmentin 875MG TAB] 1 each PO Q12HR #10 tablet predniSONE [Deltasone] 40 mg PO QDAY #10 tablet Ondansetron [Zofran Odt] 4 mg PO Q6H #30 tab.[email or web address]
[2019-12-28] MEDS: MAGNESIUM HYDROXIDE (MOM) ORAL LIQD UDC PO PRN (17:28)
--- NOTE | 2019-12-29 07:55 | Event Note ---
Date: 12/29/19
[2019-12-29 09:02] VITALS: BP 139/77
[2019-12-29] MEDS: INSULIN LISPRO 100 UNIT/ML VIAL 3 mL SUB-Q SCH (10:10)
[2019-12-29] MEDS: AMOXICILLIN/K CLAV 875/125MG TAB PO SCH (10:13)
[2019-12-29] MEDS: predniSONE 20 MG TAB PO SCH (10:13)
[2019-12-29] MEDS: amLODIPine 5 MG TAB PO SCH (10:13)
--- NOTE | 2019-12-29 12:04 | Progress Note ---
Assessment and Plan Assessment and plan: 59 YO Female with HTN, Obesity presents to ED for evaluation. Patient states that she has experienced a headache and left earache over the past 5 days. Patient states that approximately 100 hours a day she noticed that her smile was crooked, and that her face "head shifted". Patient also reports that her vision in both eyes "went black" for several seconds. Patient transported to [facility] via private vehicle for further care and evaluation of the aforementioned symptoms. Patient seen and evaluated in the emergency department. A code stroke was called. Tele-neurology was consulted in the emergency department prior to my evaluation. Patient found to have a neurologic deficit as well as symptoms consistent with acute CVA. Patient initiated on stroke protocol and placed in observation status and admitted to medical floor. Patient denies fever, chills, chest pain, palpitations, productive cough, skin rash, recent ill contacts, or known exposure to COVID-19. No medication listed at time of admission for reconciliation. No prior admission for review. Advanced care planning conducted in the emergency department. 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 Patient with chronic headaches will continue Tylenol at this time. Monitor blood pressure. Weight loss counseling provided to the patient. (2) Hypertension Current Visit: Yes Status: Acute Qualifiers: Hypertension type: essential hypertension Qualified Code(s): I10 - Essential (primary) hypertension Plan to address problem: Monitor blood pressure every shift, continue medical management. (3) Obesity hypoventilation syndrome Current Visit: Yes Status: Acute Plan to address problem: Supplemental oxygen, pulse oximetry, noninvasive positive pressure ventilation as clinically indicated. Balanced diet, increase physical activity at discharge. (4) DVT prophylaxis Current Visit: Yes Status: Acute Plan to address problem: SCD to bilateral lower extremities while in bed, patient is ambulatory. (5) Advance care planning Current Visit: Yes Status: Acute Plan to address problem: Disease education conducted, patient is full code, prognosis discussed, patient knowledges understanding and agreement with care plan, +30 minutes. History Interval history: Patient seen and examined, no futher headache complaints. Left facial droop still in place. Hospitalist Physical - Physical exam Narrative exam: VITAL SIGNS: Reviewed. GENERAL: The patient appears normally developed, Vital signs as documented. HEAD: No signs of head trauma. EYES: Pupils are equal. Extraocular motions intact. EARS: Hearing grossly intact. MOUTH: Oropharynx is normal. NECK: No adenopathy, no JVD. CHEST: Chest with clear breath sounds bilaterally. No wheezes, rales, or rhonchi. CARDIAC: Regular rate and rhythm. S1 and S2, without murmurs, gallops, or rubs. VASCULAR: No Edema. Peripheral pulses normal and equal in all extremities. ABDOMEN: Soft, non tender and non distended. No rebound or guarding, and no masses palpated. Bowel Sounds normal. MUSCULOSKELETAL: Good range of motion of all major joints. Extremities without clubbing, cyanosis or edema. NEUROLOGIC EXAM: Alert and oriented x 3 except for noted left facial droop no other no focal sensory or strength deficits. Speech normal. Follows commands. PSYCHIATRIC: Mood normal. SKIN: detail exam as documented in skin assessment - Constitutional Vitals: Temp Pulse Resp BP Pulse Ox 98.8 F 67 20 139/77 98 12/29/19 08:58 12/29/19 08:58 12/29/19 10:00 12/29/19 08:58 12/29/19 10:00 General appearance: Present: mild distress HEART Score - HEART Score Troponin: Troponin T < 0.010 ng/mL (0.00-0.029) 12/26/19 14:59 Results - Labs CBC & Chem 7: 12/26/19 14:59 12/26/19 14:59 Labs: Laboratory Last Values WBC 4.2 K/mm3 (4.5-11.0) L 12/26/19 14:59 RBC 4.77 M/mm3 (3.65-5.03) 12/26/19 14:59 Hgb 11.8 gm/dl (10.1-14.3) 12/26/19 14:59 Hct 36.3 % (30.3-42.9) 12/26/19 14:59 MCV 76 fl (79-97) L 12/26/19 14:59 MCH 25 pg (28-32) L 12/26/19 14:59 MCHC 33 % (30-34) 12/26/19 14:59 RDW 16.5 % (13.2-15.2) H 12/26/19 14:59 Plt Count 229 K/mm3 (140-440) 12/26/19 14:59 Lymph % (Auto) 33.7 % (13.4-35.0) 12/26/19 14:59 Sullivan % (Auto) 12.6 % (0.0-7.3) H 12/26/19 14:59 Eos % (Auto) 0.8 % (0.0-4.3) 12/26/19 14:59 Baso % (Auto) 0.7 % (0.0-1.8) 12/26/19 14:59 Lymph # 1.4 K/mm3 (1.2-5.4) 12/26/19 14:59 Sullivan # 0.5 K/mm3 (0.0-0.8) 12/26/19 14:59 Eos # 0.0 K/mm3 (0.0-0.4) 12/26/19 14:59 Baso # 0.0 K/mm3 (0.0-0.1) 12/26/19 14:59 Seg Neutrophils % 52.2 % (40.0-70.0) 12/26/19 14:59 Seg Neutrophils # 2.2 K/mm3 (1.8-7.7) 12/26/19 14:59 ESR 33 mm/Hr (0-20) 12/28/19 07:56 PT 12.2 Sec. (12.2-14.9) 12/26/19 14:59 INR 0.90 (0.87-1.13) 12/26/19 14:59 APTT 25.7 Sec. (24.2-36.6) 12/26/19 14:59 Thrombin Time 16.1 Sec. (15.1-19.6) 12/26/19 14:59 Sodium 142 mmol/L (137-145) 12/26/19 14:59 Potassium 3.5 mmol/L (3.6-5.0) L 12/26/19 14:59 Chloride 105.2 mmol/L (98-107) 12/26/19 14:59 Carbon Dioxide 25 mmol/L (22-30) 12/26/19 14:59 Anion Gap 15 mmol/L 12/26/19 14:59 BUN 11 mg/dL (7-17) 12/26/19 14:59 Creatinine 0.8 mg/dL (0.6-1.2) 12/26/19 14:59 Estimated GFR > 60 ml/min 12/26/19 14:59 BUN/Creatinine Ratio 14 % 12/26/19 14:59 Glucose 123 mg/dL (65-100) H 12/26/19 14:59 POC Glucose 110 (70-105) H 12/29/19 08:15 Calcium 9.6 mg/dL (8.4-10.2) 12/26/19 14:59 Total Bilirubin 0.30 mg/dL (0.1-1.2) 12/26/19 14:59 AST 20 units/L (5-40) 12/26/19 14:59 ALT 13 units/L (7-56) 12/26/19 14:59 Alkaline Phosphatase 89 units/L (35-129) 12/26/19 14:59 Total Creatine Kinase 229 units/L (30-135) H 12/26/19 14:59 CK-MB (CK-2) 1.9 ng/mL (0.0-4.0) 12/26/19 14:59 CK-MB (CK-2) Rel Index 0.8 (0-4) 12/26/19 14:59 Troponin T < 0.010 ng/mL (0.00-0.029) 12/26/19 14:59 Total Protein 7.4 g/dL (6.3-8.2) 12/26/19 14:59 Albumin 4.4 g/dL (3.9-5) 12/26/19 14:59 Albumin/Globulin Ratio 1.5 % 12/26/19 14:59 Triglycerides 137 mg/dL (2-149) 12/26/19 19:16 Cholesterol 203 mg/dL (50-199) H 12/26/19 19:16 LDL Cholesterol Direct 139 mg/dL (50-130) H 12/26/19 19:16 HDL Cholesterol 47 mg/dL (40-59) 12/26/19 19:16 Cholesterol/HDL Ratio 4.31 % 12/26/19 19:16 Plasma/Serum Alcohol < 0.01 % (0-0.07) 12/26/19 14:59 - Diagnostic Impressions Diagnostic Impressions: Echocardiogram 12/26/19 19:05 Transthoracic Echocardiogram Indication: Stroke BP: 131/86 HR: 68 Conclusions *The left ventricular chamber size is normal. *Global left ventricular wall motion and contractility are within normal limits. *Global left ventricular systolic function is normal. *The estimated ejection fraction is 55-60%. *Abnormal left ventricular diastolic filling is observed, consistent with impaired relaxation. *A patent foramen ovale is demonstrated by agitated saline contrast. Very small shunt noted on saline injection. *The right ventricular systolic pressure is calculated at 28 mmHg. Findings Left Ventricle: The left ventricular chamber size is normal. Global left ventricular wall motion and contractility are within normal limits. Global left ventricular systolic function is normal. The estimated ejection fraction is 55-60%. Abnormal left ventricular diastolic filling is observed, consistent with impaired relaxation. Right Ventricle: The right ventricular cavity size is normal. Right Atrium: The right atrial cavity size is normal. A patent foramen ovale is demonstrated by agitated saline contrast. Very small shunt noted on saline injection. Aortic Valve: The aortic valve structure is normal. There is no evidence of aortic regurgitation. Mitral Valve: The mitral valve leaflets are mildly thickened. There is trace of mitral regurgitation. Tricuspid Valve: The tricuspid valve leaflets are normal. There is mild tricuspid regurgitation. The right ventricular systolic pressure is calculated at 28 mmHg. Pulmonic Valve: The pulmonic valve appears normal. There is trace pulmonic regurgitation. Pericardium: There is no pericardial effusion. Aorta: The aorta appears normal. Contrast: Intravenous agitated saline contrast was used to assess intracardiac shunting. Measurements Chambers 2D Name Value Normal Range IVSd (2D) 0.99 cm (0.6 - 1.1) LVPWd (2D) 0.9 cm (0.6 - 1.1) LVIDd (2D) 4.38 cm (3.7 - 5.6) LVIDs (2D) 2.79 cm (2 - 3.8) LV FS (2D) 36.23 % - EF Teichholz (2D) 66.14 % - Ao root diameter (2D) 2.74 cm (2 - 3.7) Volumes/Mass Name Value Normal Range LA ESV SP 4CH (A/L) 29.52 ml - LA ESV SP 2CH (A/L) 44.45 ml - LA ESV BP (A/L) 36.82 ml - LA ESV BP (A/L) index 18.23 ml/m2 - LA ESV SP 4CH (MOD) 27.44 ml - LA ESV SP 2CH (MOD) 43.69 ml - LA ESV BP (MOD) 34.97 ml - LA ESV BP (MOD) index 17.31 ml/m2 - Diastolic/Systolic Function Name Value Normal Range MV E-wave Vmax 0.73 m/sec - MV deceleration time 207.62 msec - MV A-wave Vmax 0.82 m/sec - MV E:A ratio 0.89 ratio - Aortic Valve Name Value Normal Range AV Vmax 1.38 m/sec - AV VTI 30.56 cm - AV peak gradient 7.58 mmHg - AV mean gradient 4.3 mmHg - LVOT diameter 2.02 cm - LVOT Vmax 1.08 m/sec - LVOT VTI 26.08 cm - LVOT peak gradient 4.68 mmHg - LVOT mean gradient 2.73 mmHg - SV LVOT 83.51 ml - CAMILO (continuity Vmax) 2.52 cm2 - CAMILO (continuity VTI) 2.73 cm2 - Tricuspid Valve Name Value Normal Range TR Vmax 2.53 m/sec - TR peak gradient 25 mmHg - RAP 3 mmHg - RVSP 28 mmHg - Pulmonic Valve/Qp:Qs Name Value Normal Range PV Vmax 0.86 m/sec - PV peak gradient 2.96 mmHg - ND end-diastolic Vmax 0.92 m/sec - PV acceleration time 171.27 msec - Knapp/IV: Voiding Method Bedside Commode IV Catheter Type [Right INT / Saline Lock Antecubital] Active Medications - Current Medications Current Medications: Generic Name Dose Route Start Last Admin Trade Name Freq PRN Reason Stop Dose Admin Acetaminophen 650 mg 12/26/19 19:04 12/27/19 18:36 Tylenol PO 650 mg Q4H PRN Administration Pain, Mild (1-3) Amlodipine Besylate 5 mg 12/28/19 10:00 12/29/19 10:13 Amlodipine PO 5 mg DAILY SOPHIE Administration Amoxicillin/Clavulanate Potassium 1 each 12/28/19 10:00 12/29/19 10:13 Augmentin 875 Mg PO 1 each Q12HR SOPHIE Administration Atorvastatin Calcium 40 mg 12/26/19 22:00 12/28/19 21:24 Lipitor PO 40 mg QHS SOPHIE Administration Bisacodyl 10 mg 12/26/19 19:04 Dulcolax ND QDAY PRN Constipation Insulin Human Lispro 6 unit 12/28/19 10:00 12/29/19 10:10 Humalog SUB-Q Not Given BIDDIAB SOPHIE Magnesium Hydroxide 30 ml 12/26/19 19:04 12/28/19 17:28 Milk Of Magnesia PO 30 ml Q4H PRN Administration Constipation Metoclopramide HCl 10 mg 12/26/19 19:04 Reglan PO Q6H PRN Nausea And Vomiting Ondansetron HCl 4 mg 12/26/19 19:04 12/28/19 07:43 Zofran IV 4 mg Q8H PRN Administration Nausea And Vomiting Prednisone 40 mg 12/28/19 10:00 12/29/19 10:13 Deltasone PO 40 mg QDAY SOPHIE Administration Promethazine HCl 25 mg 12/26/19 19:04 Phenergan ND Q6H PRN Nausea And Vomiting Sodium Chloride 10 ml 12/26/19 19:04 Sodium Chloride Flush Syringe 10 Ml IV PRN PRN LINE FLUSH
== END 2019-12-29 15:06 | disposition home or self-care (01) ==
LOC: ED 13:45 → 4A 19:04
PROVIDERS: ADMIT Internal Medicine; ATTEND Internal Medicine
DX: I63.9 Cerebral infarction, unspecified (principal); I10 Essential (primary) hypertension; G51.0 Bell's palsy; E66.2 Morbid (severe) obesity with alveolar hypoventilation; R29.701 NIHSS score 1; Z68.41 Body mass index [BMI] 40.0-44.9, adult; Z87.891 Personal history of nicotine dependence; Z79.899 Other long term (current) drug therapy
CPT/HCPCS: 36415; 70450; 80053; 80061; 82550; 82553; 82962; 84484; 85025; 85610; 85652; 85670; 85730; 92610; 93005; 93306; 93880; 96372; 96374; 97161; 97165; 99285; A9270; G0378; J2405; J7512; 80320; G0480